=== PATIENT | female | born 1960 | race Caucasian/White ===

== ENCOUNTER → 2018-06-18 | Outpatient (CLI) | payer OTHER ==
[~2018-06-18] MED LIST: ACETAMINOPHEN-1 EAC1 PO; ACETAMINOPHEN325 M1 PO; COLACE100 MG PO; EQUATE PM; LIORESAL 10 MG10 MG PO; MEDROLDOSEPACK PO; NEURONTIN 300300 M1 PO; ONDANSETRON HCL4 M2 PO; PERCOCET 5-3251 EACH PO; PERCOCET PO; PHENAZOPYRIDIN200 M2 PO; PREDNISONE 10 M10 MG PO; ROBAXIN 750 MG750 M1 PO; ROBAXIN500 MG PO; TIZANIDINE HCL4 MG PO; VALIUM5 MG PO
== END ==
LOC: ULTRA 16:18
DX: M79.89 Other specified soft tissue disorders (principal); M79.601 Pain in right arm